=== PATIENT | male | born 1995 | race Caucasian/White ===

== ENCOUNTER 2019-12-08 18:40 | Emergency (ER) | payer OTHER ==
[2019-12-08] MEDS ORDERED: Ketorolac 30 MG/ML SDV IM ONE (19:31)
--- NOTE | 2019-12-08 20:20 | CT ---
INDICATION: Lower back pain. CT LUMBAR SPINE WITHOUT CONTRAST TECHNIQUE: Multidetector axial CT imaging was performed through the lumbar spine, without contrast. Sagittal and coronal reconstructions were generated. FINDINGS: No acute fractures are identified. Disc spaces appear preserved. Osseous alignment is within normal limits and no subluxation is seen. Paravertebral soft tissues are unremarkable. IMPRESSION: No fracture, subluxation, or other acute finding identified. TOM GUY MD [facility] Dictated by: Hai Guy MD @ 12/08/2019 20:19:50 (Electronically Signed)
[2019-12-08] MEDS ORDERED: Diazepam 5 MG Tab PO ONE (20:45)
[2019-12-08] MEDS ORDERED: predniSONE 20 MG Tab PO ONE (20:45)
[2019-12-08] MEDS ORDERED: Naproxen 500 MG Tab PO ONE (20:46)
--- NOTE | 2019-12-08 20:52 | EDM.PDOC ---
ED HPI GENERAL MEDICAL PROBLEM - General Chief Complaint: Back Pain or Injury Stated Complaint: BACK PAIN Time Seen by Provider: 12/08/19 19:23 Source of Information: Reports: Patient History Limitations: Reports: No Limitations - History of Present Illness INITIAL COMMENTS - FREE TEXT/NARRATIVE: 24-year-old male who presents the emergency room with a chief complaint of lower back pain. She has severe pain and spasm when he went to grain picker a box. Patient has had previous back fracture while playing sports in high school. No neurological findings at this time Onset: Today Duration: Hour(s):, Waxing/Waning Location: Reports: Back Quality: Reports: Ache Severity: Moderate Improves with: Reports: None Worsens with: Reports: Movement Associated Symptoms: Reports: No Other Symptoms low back Pain Score (Numeric/FACES): 7 - Related Data Allergies Allergy/AdvReac Type Severity Reaction Status Date / Time mold Allergy Other Verified 12/08/19 19:14 dust Allergy Other Uncoded 12/08/19 19:14 Home Meds: Home Meds . [No Known Home Meds] 12/08/19 [History] Past Medical History - Past Health History Medical/Surgical History: Denies Medical/Surgical History Hematologic History: Reports: Folic Acid - Past Surgical History HEENT Surgical History: Reports: Adenoidectomy, Myringotomy w Tube(s), Tonsillectomy Other HEENT Surgeries/Procedures: ear drum repair Social & Family History - Family History Family Medical History: Noncontributory - Tobacco Use Smoking Status *Q: Current Every Day Smoker Years of Tobacco use: 1 Packs/Tins Daily: 0.5 - Recreational Drug Use Recreational Drug Use: No ED ROS GENERAL - Review of Systems Review Of Systems: Comprehensive ROS is negative, except as noted in HPI. Constitutional: Reports: No Symptoms HEENT: Reports: No Symptoms Respiratory: Reports: No Symptoms Cardiovascular: Reports: No Symptoms Endocrine: Reports: No Symptoms GI/Abdominal: Reports: No Symptoms : Reports: No Symptoms Musculoskeletal: Reports: Back Pain Skin: Reports: No Symptoms Neurological: Reports: No Symptoms, Difficulty Walking Psychiatric: Reports: No Symptoms Hematologic/Lymphatic: Reports: No Symptoms Immunologic: Reports: No Symptoms ED EXAM,LOWER BACK PAIN/INJURY - Physical Exam Exam: See Below Exam Limited By: No Limitations General Appearance: Alert, WD/WN, No Apparent Distress Eye Exam: Bilateral Eye: PERRL Ears: Normal External Exam, Normal Canal, Hearing Grossly Normal, Normal TMs Nose: Normal Inspection, Normal Mucosa Throat/Mouth: Normal Inspection, Normal Lips, Normal Teeth Head: Atraumatic Neck: Normal Inspection, Supple, Non-Tender Respiratory/Chest: No Respiratory Distress, Lungs Clear Cardiovascular: Normal Peripheral Pulses, Regular Rate, Rhythm GI/Abdominal: Normal Bowel Sounds, Soft (Male) Exam: Deferred Rectal (Males) Exam: Deferred Back Exam: Normal Inspection, Decreased Range of Motion, Muscle Spasm, Paraspinal Tenderness, Vertebral Tenderness Extremities: Normal Inspection, Normal Range of Motion, Non-Tender, No Pedal Edema Neurological: Alert, Normal Mood/Affect, Normal Dorsiflexion, Normal Plantar Flexion, Normal Gait, No Motor/Sensory Deficits, Oriented x 3 Psychiatric: Normal Affect, Normal Mood Skin Exam: Warm, Dry, Intact, Normal Color Lymphatic: No Adenopathy Course - Vital Signs Last Recorded V/S: Last Vital Signs Temp 99.3 F 12/08/19 19:12 Pulse 95 12/08/19 19:12 Resp 18 12/08/19 19:12 BP 148/100 H 12/08/19 19:12 Pulse Ox 98 12/08/19 19:12 - Orders/Labs/Meds Orders: Active Orders 24 hr Category Date Time Status Naproxen [Naprosyn] Med 12/08/19 20:46 Once 500 mg PO ONETIME ONE Meds: Medications Discontinued Medications Generic Name Dose Route Start Last Admin Trade Name Freq PRN Reason Stop Dose Admin Diazepam 10 mg 12/08/19 20:45 Valium. PO 12/08/19 20:46 ONETIME ONE Ketorolac Tromethamine 30 mg 12/08/19 19:31 12/08/19 20:07 Toradol IM 12/08/19 19:32 30 mg ONETIME ONE Administration Prednisone 40 mg 12/08/19 20:45 Prednisone PO 12/08/19 20:46 ONETIME ONE Departure - Departure Time of Disposition: 20:51 Disposition: Home, Self-Care 01 Condition: Good Clinical Impression: Back complaints, Sciatica - Discharge Information Instructions: Muscle Strain, [id number], Back Injury Prevention, [id number] Referrals: PCP,Not In Area [Primary Care Provider] - Sepsis Event Note - Evaluation Sepsis Screening Result: No Definite Risk - Focused Exam Vital Signs: Vital Signs Temp Pulse Resp BP Pulse Ox 12/08/19 19:12 99.3 F 95 18 148/100 H 98 Date Exam was Performed: 12/08/19 Time Exam was Performed: 20:46 - My Orders Last 24 Hours: My Active Orders 12/08/19 20:46 Naproxen [Naprosyn] 500 mg PO ONETIME ONE - Assessment/Plan Last 24 Hours: My Active Orders 12/08/19 20:46 Naproxen [Naprosyn] 500 mg PO ONETIME ONE
== END 2019-12-08 21:05 | disposition home or self-care (01) ==
LOC: MW.ED 18:40
DX: M54.40 Lumbago with sciatica, unspecified side (principal); F17.210 Nicotine dependence, cigarettes, uncomplicated; Z91.048 Other nonmedicinal substance allergy status
CPT/HCPCS: 72131; 96372; 99284; A9270; J1885; 99283